=== PATIENT | female | born 1985 | race Caucasian/White ===

== ENCOUNTER → 2019-05-17 | Outpatient (REF) | payer OTHER | LOC: M SFHCLERA 19:29 | PROVIDERS: ATTEND Nurse Practitioner Family | DX: R53.81 Other malaise (principal) ==

== ENCOUNTER → 2020-05-08 | Outpatient (REF) | payer OTHER ==
[2020-05-08 10:11] LABS: HEMATOCRIT 35.6 % (36.0-47.0); MEAN CORPUSCULAR HEMOGLOBIN 30.8 pg (27.0-33.0); MEAN CORPUSCULAR HGB CONC 33.7 g/dl (32.0-36.5); MEAN CORPUSCULAR VOLUME 91.5 fl (80.0-96.0); PLATELET COUNT, AUTOMATED 283 10^3/uL (150-450); RED BLOOD COUNT 3.89 10^6/uL (4.00-5.40); WHITE BLOOD COUNT 8.2 10^3/uL (4.0-10.0)
[2020-05-08 12:11] LABS: CHLAMYDIA DNA AMPLIFICATION NEGATIVE (NEGATIVE); GC DNA AMPLIFICATION NEGATIVE (NEGATIVE)
[2020-05-08 12:35] LABS: HIV 1&2 SCREEN CENTAUR NEGATIVE (NEGATIVE)
== END ==
LOC: M PLALAB 08:44
PROVIDERS: ATTEND Advanced Practice Midwife
DX: O09.812 Supervision of pregnancy resulting from assisted reproductive technology, second trimester (principal); Z3A.00 Weeks of gestation of pregnancy not specified

== ENCOUNTER → 2020-05-08 | Outpatient (CLI) | payer OTHER | LOC: M PLALAB 08:45 | PROVIDERS: ATTEND Advanced Practice Midwife | DX: O09.812 Supervision of pregnancy resulting from assisted reproductive technology, second trimester (principal); Z3A.00 Weeks of gestation of pregnancy not specified ==

== ENCOUNTER → 2020-06-03 | Outpatient (CLI) | payer OTHER | LOC: M WHC 23:51 | PROVIDERS: ATTEND Obstetrics & Gynecology | DX: Z53.29 Procedure and treatment not carried out because of patient's decision for other reasons (principal); Z3A.19 19 weeks gestation of pregnancy ==

== ENCOUNTER → 2020-06-23 | Outpatient (CLI) | payer OTHER ==
--- NOTE | 2020-06-23 10:50 | REP ---
INDICATION: ANATOMY. COMPARISON: None. TECHNIQUE: Transabdominal obstetric sonography. FINDINGS: Scanning through the gravid uterus demonstrates a viable single intrauterine gestation in cephalic lie. motion is observed and heart rate is recorded at 152 beats per minute. A 2 anterior placenta is seen, grade 2, without evidence of placenta previa. Closed cervical length is measured at 3.6 cm transabdominally. No extrauterine abnormality is observed. Amniotic fluid is subjectively 6. No anomaly is seen. The following anatomic structures are identified and felt to be sonographically unremarkable: cranium, choroid plexus, cavum, cerebellum and posterior fossa, face and profile, lungs, four-chamber heart with left and right ventricular outflow tract views, diaphragm, left-sided stomach, abdominal wall cord insertion, three-vessel umbilical cord, kidneys and bladder, spine, and upper and lower extremities. Biometry chart: BPD 5.6 cm, 23 weeks 0 days Head circumference 21.4 cm, 23 weeks 3 days Abdominal circumference 18.6 cm, 23 weeks 3 days Femur length 3.9 cm, 22 weeks 3 days Humeral length 3.7 cm, 22 weeks 6 days HC AC ratio normal 1.15 Cephalic index normal 00.72 Estimated weight 553 g, 1 lb 3 oz, 42nd percentile for 23 weeks 0 days IMPRESSION: Viable single intrauterine gestation at 23 weeks 0 days by today's composite sonographic criteria. PARKER by today's sonography October 20, 2020.. No complication identified. Mild anterior myometrial thick wall thinning is seen at the scar. <Electronically signed by Anderson Vogt > 06/23/20 [id number]
== END ==
LOC: M WHC 07:47
PROVIDERS: ATTEND Obstetrics & Gynecology
DX: Z3A.19 19 weeks gestation of pregnancy (principal)

== ENCOUNTER → 2020-07-11 | Outpatient (REF) | payer OTHER | LOC: M PLALAB 07:49 | PROVIDERS: ATTEND Obstetrics & Gynecology | DX: Z3A.24 24 weeks gestation of pregnancy (principal); Z36.89 Encounter for other specified antenatal screening ==

== ENCOUNTER → 2020-07-28 | Outpatient (REF) | payer OTHER ==
[2020-07-28 13:42] LABS: HEMATOCRIT 33.9 % (36.0-47.0); HEMOGLOBIN 11.1 g/dl (12.0-15.5); MEAN CORPUSCULAR HEMOGLOBIN 30.1 pg (27.0-33.0); MEAN CORPUSCULAR HGB CONC 32.7 g/dl (32.0-36.5); MEAN CORPUSCULAR VOLUME 91.9 fl (80.0-96.0); PLATELET COUNT, AUTOMATED 317 10^3/uL (150-450); RED BLOOD COUNT 3.69 10^6/uL (4.00-5.40); WHITE BLOOD COUNT 9.9 10^3/uL (4.0-10.0)
== END ==
LOC: M PLALAB 09:16
PROVIDERS: ATTEND Obstetrics & Gynecology
DX: Z36.89 Encounter for other specified antenatal screening (principal); Z3A.24 24 weeks gestation of pregnancy

== ENCOUNTER → 2020-08-11 | Outpatient (CLI) | payer OTHER | LOC: M WHC 07:59 | PROVIDERS: ATTEND Obstetrics & Gynecology | DX: Z3A.29 29 weeks gestation of pregnancy (principal); Z53.9 Procedure and treatment not carried out, unspecified reason ==

== ENCOUNTER → 2020-08-25 | Outpatient (CLI) | payer OTHER ==
--- NOTE | 2020-08-25 15:59 | REP ---
INDICATION: F/U ANATOMY COMPARISON: 08/11/2020 TECHNIQUE: Transabdominal obstetrical ultrasound with color Doppler evaluation. FINDINGS: Examination demonstrates a single live intrauterine in breech presentation. motion is identified by technologist. Placenta is noted anterior and grade 2 without evidence for placenta previa or abruption. Amniotic fluid volume is normal. Cervix measures 5.1 cm in length and appears closed. Gestational age by LMP 32 weeks 0 days with PARKER 10/20/2020. Gestational age by current measurements 32 weeks 1 day with PARKER 10/19/2020. FHR equals 146 beats per minute. BPD: 8.0 cm at 32 weeks 2 days HC: 31.0 cm at 34 weeks 5 days AC: 28.6 cm at 32 weeks 4 days FL: 5.9 cm at 30 weeks 4 days HL: 5.3 cm at 30 weeks 5 days HC/AC: 1.09 Estimated weight 1920 grams (44thpercentile). MYNOR: 16.8 cm (8.6-24.2) Umbilical artery SD ratio: 2.16 (1.84-3.87). IMPRESSION: Single live advanced gestation in breech presentation demonstrating appropriate interval growth. <Electronically signed by [place] > 08/25/20 [id number]
== END ==
LOC: M WHC 14:18
PROVIDERS: ATTEND Obstetrics & Gynecology
DX: Z36.2 Encounter for other antenatal screening follow-up (principal); Z3A.32 32 weeks gestation of pregnancy; O32.1XX0 Maternal care for breech presentation, not applicable or unspecified

== ENCOUNTER 2020-08-30 10:37 | Outpatient (CLI) | payer OTHER ==
[~2020-08-30] VITALS: Ht 170.2 cm; Wt 85.2 kg
[2020-08-30 10:49] VITALS: BP 104/63
--- NOTE | 2020-08-30 12:05 | IPNPDOC ---
Obstetrical Progress Note Date of Service August 30, 2020 Subjective 35-year-old G6, P3 023 at 31+6 weeks gestation. Presents with concerns of decreased movement. She denies vaginal bleeding, loss of fluid or uterine contractions. course: 1. IVF 2. 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 Ext: no c/c/e EFM: Cat I/reactive, normal baseline, mod jami, no decels [place]: no ctx pattern detected US,[place]: cephalic, MVP = 5.6cm A/P: 35yo at 31+6 weeks. Reassuring maternal and status. -Routine 3rd TM precautions reviewed -Follow up in office as scheduled. DO BARB Muro JONATHAN R. DO August 30, 2020 12:05
[2020-08-30] MEDS ORDERED: PRENTAB9 PO (12:09)
[2020-08-30] MEDS ORDERED: GAS-62.5 PO (12:09)
[2020-08-30] MEDS ORDERED: TUMS500C PO (12:09)
== END 2020-08-30 12:00 | disposition home or self-care (01) ==
LOC: M LDO 10:37
PROVIDERS: ATTEND Obstetrics & Gynecology
DX: O36.8130 Decreased fetal movements, third trimester, not applicable or unspecified (principal); Z3A.31 31 weeks gestation of pregnancy; O34.211 Maternal care for low transverse scar from previous cesarean delivery; O09.813 Supervision of pregnancy resulting from assisted reproductive technology, third trimester; Z88.8 Allergy status to other drugs, medicaments and biological substances
CPT/HCPCS: 59025; 76815; G0378; G0463

== ENCOUNTER → 2020-09-25 | Outpatient (REF) | payer OTHER ==
[~2020-09-25] MED LIST: GAS-62.5 PO; PRENTAB9 PO; TUMS500C PO
== END ==
LOC: M SFHCWAGY 16:50
PROVIDERS: ATTEND Advanced Practice Midwife
DX: O34.211 Maternal care for low transverse scar from previous cesarean delivery (principal)

== ENCOUNTER → 2020-10-15 | Outpatient (CLI) | payer OTHER ==
[~2020-10-15] MED LIST changes: +ACET325C5 PO; +IBUP80TA PO; +OXYC1TAB23 PO
== END ==
LOC: M LABSMTC 09:37
PROVIDERS: ATTEND Anesthesiology
DX: Z01.812 Encounter for preprocedural laboratory examination (principal)
CPT/HCPCS: G0463; U0003

== ENCOUNTER 2020-10-20 05:15 | Inpatient (IN) | payer OTHER ==
[~2020-10-20] VITALS: Ht 170.2 cm; Wt 84.8 kg
[2020-10-20] VITALS (9 sets, daily range): BP systolic 90–136; BP diastolic 51–80
[~2020-10-20 05:15] MED LIST changes: -ACET325C5 PO; -IBUP80TA PO; -OXYC1TAB23 PO
[2020-10-20] MEDS ORDERED: ACET325C5 PO (05:46)
[2020-10-20] MEDS ORDERED: BICITRA 30ML SOLN UDC PO ONE ×2 (06:00→07:10)
[2020-10-20 06:21] LABS: HEMATOCRIT 32.6 % (36.0-47.0); HEMOGLOBIN 10.4 g/dl (12.0-15.5); MEAN CORPUSCULAR HEMOGLOBIN 26.4 pg (27.0-33.0); MEAN CORPUSCULAR HGB CONC 31.9 g/dl (32.0-36.5); MEAN CORPUSCULAR VOLUME 82.7 fl (80.0-96.0); PLATELET COUNT, AUTOMATED 292 10^3/uL (150-450); RED BLOOD COUNT 3.94 10^6/uL (4.00-5.40); WHITE BLOOD COUNT 8.2 10^3/uL (4.0-10.0)
[2020-10-20] MEDS ORDERED: LACTATED RINGER'S 1000 ML IV STA (07:08)
[2020-10-20] MEDS ORDERED: ceFAZolin SOD 2 GM in IV 1 EA IV ONE (07:10)
[2020-10-20] MEDS ORDERED: LR 1,000 ML IV SCH ×2 (07:10→09:00)
[2020-10-20] MEDS ORDERED: CLINDAMYCIN 900 MG in IV 1 EA IV ONE (07:15)
[2020-10-20] MEDS ORDERED: OXYTOCIN 30 UNITS IN 0.9% NaCl 500ML IV BAG (J2590) As Ordered ONE ×2 (07:43→09:27)
[2020-10-20] MEDS ORDERED: MORPHINE PRES-FREE INJ 10 MG/10 ML VIAL (J2274) As Ordered ONE (07:43)
[2020-10-20] MEDS ORDERED: dexameTHASONE 4 MG/ML 1ML VIAL (J1100 PER 1MG) As Ordered ONE (07:43)
[2020-10-20] MEDS ORDERED: KETOROLAC 60MG 2ML VIAL As Ordered ONE (07:43)
[2020-10-20] MEDS ORDERED: ONDANSETRON 4MG/2ML VIAL As Ordered ONE (07:43)
[2020-10-20] MEDS ORDERED: NALBUPHINE HCL 10 MG/ML AMP (J2300) IV PRN ×2 (07:58→09:00)
[2020-10-20] MEDS ORDERED: METOCLOPRAMIDE INJ 10MG/2ML VIAL (J2765 PER 1) IV PRN (07:58)
[2020-10-20] MEDS ORDERED: NALOXONE INJ 0.4MG/1ML VIAL (J2310 PER 1MG) IV PRN ×2 (07:58)
[2020-10-20] MEDS ORDERED: diphenhydrAMINE 50MG/ML VIAL (J1200) IV PRN ×2 (07:58→11:10)
[2020-10-20] MEDS ORDERED: ONDANSETRON 4MG/2ML VIAL IV PRN ×3 (07:58→09:10)
[2020-10-20] MEDS ORDERED: GENTAMICIN 120 MG in D5W 50 ML IV ONE (08:00)
[2020-10-20] MEDS ORDERED: PHENYLephrine 500MCG 5ML (100MCG/ML) SYRINGE As Ordered ONE ×2 (08:08→08:35)
[2020-10-20] MEDS ORDERED: METOCLOPRAMIDE INJ 10MG/2ML VIAL (J2765 PER 1) As Ordered ONE (08:20)
--- NOTE | 2020-10-20 08:57 | ROOPDOC ---
[facility] Report Of Operation Report of Operation DATE OF PROCEDURE: 10/20/20 Report of operation Preoperative diagnosis: 39 weeks, prior section x 3 Postoperative diagnosis: same Procedure: Repeat low transverse section. Surgeon: Charisse Escobedo M.D. Asst.: Cinthya Faye CNM EBL: 500 ml. Urine output: 100 mL's. Findings: 8 lbs. 11 oz. male infant, 's 8 and 9 g normal uterus, ovaries. Fallopian tubes with evidence of prior surgery. Operative summary: Patient was taken to the operating room where spinal anesthesia was induced. She was prepped and draped sterile fashion in the supine position. A Fontanez catheter was placed. A Pfannenstiel skin incision was made with scalpel. Fascia was incised and extended bilaterally. The peritoneal cavity was entered. A Mobius retractor was placed. A bladder flap was created. A curv ilinear incision was made in lower uterine segment until Clear fluid was noted. The incision was extended manually. The was delivered from the vertex position without difficulty. Cord was doubly clamped and cut. The infant was handed to awaiting nurses. The placenta was expressed. Uterus was closed with O- Vicryl in a running locked fashion. A second imbricating layer of Vicryl was placed. Peritoneum was closed with 2-0 Vicryl a running fashion. Fascia was closed with 0 Vicryl in running fashion. Skin was closed 4-0 Monocryl subcuticular sutures. Sponge, instrument and needle counts were correct. Cinthya Faye CNM, assisted with all aspects of the procedure. She helped close each layer of the incision and deliver the fetus. . CHARISSE ESCOBEDO MD Oct 20, 2020 08:57
[2020-10-20] MEDS: PRENATAL VITAMINS CHEWABLE TABLET PO SCH (09:00)
[2020-10-20] MEDS ORDERED: fentaNYL 100 MCG/2 ML INJECTION (J3010) IV PRN (09:00)
[2020-10-20] MEDS ORDERED: PERCOCET 5MG/325MG TAB PO PRN ×2 (09:10)
[2020-10-20] MEDS ORDERED: MEASLES,MUMPS,RUBELLA VACCINE INJ (MMR-II) (90707) SC SCH (09:10)
[2020-10-20] MEDS ORDERED: OXYTOCIN DRIP 30 UNITS in IV 1 EA IV SCH (09:10)
[2020-10-20] MEDS ORDERED: RHOGAM 300 MCG (1500 IU) INJ (J2790) IM SCH (09:10)
[2020-10-20] MEDS ORDERED: DOCUSATE SODIUM 100MG CAPSULE PO PRN (09:10)
[2020-10-20] MEDS: LR 1,000 ML IV SCH ×2 (10:02→18:13)
[2020-10-20] MEDS: KETOROLAC 30 MG/ML 1ML VIAL IV SCH ×2 (14:53→21:13)
[2020-10-20] MEDS ORDERED: SLF 3 ML SYR IV PRN (18:35)
[2020-10-20] MEDS: SLF 3 ML SYR IV SCH (21:13)
[2020-10-21] MEDS: LR 1,000 ML IV SCH (01:10)
[2020-10-21 02:00] VITALS: BP 92/60
[2020-10-21] MEDS: KETOROLAC 30 MG/ML 1ML VIAL IV SCH (02:30)
[2020-10-21 05:50] VITALS: BP 108/59
[2020-10-21] MEDS: SLF 3 ML SYR IV SCH ×2 (06:04→13:45)
[2020-10-21] MEDS: SIMETHICONE 80MG CHEW TAB PO PRN ×2 (07:42→14:01)
[2020-10-21] MEDS: PRENATAL VITAMINS CHEWABLE TABLET PO SCH (07:43)
[2020-10-21 08:57] LABS: HEMATOCRIT 27.2 % (36.0-47.0); HEMOGLOBIN 8.7 g/dl (12.0-15.5); MEAN CORPUSCULAR HEMOGLOBIN 26.8 pg (27.0-33.0); MEAN CORPUSCULAR VOLUME 83.7 fl (80.0-96.0); PLATELET COUNT, AUTOMATED 255 10^3/uL (150-450); RED BLOOD COUNT 3.25 10^6/uL (4.00-5.40); WHITE BLOOD COUNT 9.3 10^3/uL (4.0-10.0)
[2020-10-21 10:04] VITALS: BP 103/65
[2020-10-21] MEDS ORDERED: IBUPROFEN 800 MG TAB PO SCH (11:00)
[2020-10-21 14:03] VITALS: BP 128/72
[2020-10-21] MEDS ORDERED: IBUP80TA PO (15:40)
[2020-10-21] MEDS ORDERED: OXYC1TAB23 PO (15:40)
--- NOTE | 2020-10-21 15:55 | DS.PDOC ---
Discharge Summary General Date of Admission Oct 20, 2020 at 05:15 Date of Discharge October 21, 2020 Discharge Summary PROCEDURES PERFORMED DURING STAY: . ADMITTING DIAGNOSES: 1. 39 1/7 weeks, prior x 3. DISCHARGE DIAGNOSES: 1. delivered. COMPLICATIONS/CHIEF COMPLAINT: Previous Section. HISTORY OF PRESENT ILLNESS: 35 yo female at 39 1/7 weeks gestation presents for a repeat section. She has had 3 prior sections. No complications during . HOSPITAL COURSE: 35 yo female at 39 1/7 weeks gestation presents for a repeat section. She has had 3 prior sections. No complications during . On October 20, 2020 she underwent a repeat low transverse section for an 8# 11 oz infant, scores 8,9. Her post-operative course was unremarkable. She had adequate return of bladder and bowel function. The baby developed respiratory difficulty on post op day#1 and required intubation. The baby was transferred to [facility] for [facility] care. The patient was discharged in order to be with the baby. DISCHARGE MEDICATIONS: Please see below. ALLERGIES: Please see below. PHYSICAL EXAMINATION ON DISCHARGE: VITAL SIGNS: Please see below. GENERAL: NAD HEENT: NCAT CARDIOVASCULAR EXAMINATION: RRR RESPIRATORY EXAMINATION: CTA ABDOMINAL EXAMINATION: NT, dressing I EXTREMITIES: NT LABORATORY DATA: Please see below. PROGNOSIS: good ACTIVITY: As tolerated. DIET: reg DISCHARGE PLAN: home DISCHARGE INSTRUCTIONS: 1. instructions reviewed 2. pain meds sent 3. f-u 2 weeks DISCHARGE CONDITION: Stable. TIME SPENT ON DISCHARGE: 5 minutes. Vital Signs/I&Os Vital Signs Date Time Temp Pulse Resp B/P (MAP) Pulse Ox O2 Delivery O2 Flow Rate FiO2 10/21/20 14:03 96.5 72 17 128/72 (90) 100 Room Air I&O- Last 24 Hours up to 6 AM 10/21/20 06:00 Intake Total 4588 ml Output Total 2255 ml Balance 2333 ml Laboratory Data Labs 24H Laboratory Tests 2 10/21/20 08:19: Nucleated Red Blood Cells % (auto) 0.0 CBC/BMP Laboratory Tests 10/21/20 08:19 Discharge Medications Scheduled Ibuprofen (Ibuprofen) 800 Mg Tablet, 800 MG PO Q8H No.137/Iron/Folic Acd ( Vitamin Tablet) 1 Each Tablet, 1 TAB PO DAILY, (Reported) Simethicone (Gas-X) 62.5 Mg Strip, 62.5 MG PO PRN, (Reported) Scheduled PRN Oxycodone HCl/Acetaminophen (Oxycodone-Acetaminophen 5-325) 1 Each Tablet, 1 TAB PO TIDP PRN for pain Allergies Coded Allergies: Penicillins (Verified Allergy, Severe, ANAPHYLAXIS, 10/07/20) CHARISSE ESCOBEDO MD Oct 21, 2020 15:55
== END 2020-10-21 16:00 | disposition home or self-care (01) | DRG 773 ==
LOC: M LDI 05:15 → M OBS 10:30
PROVIDERS: ADMIT Specialist; ATTEND Specialist
PROC: 10D00Z1 Extraction of Products of Conception, Low, Open Approach (ICD-10-PCS; principal; 2020-10-20 07:30)
DX: O34.211 Maternal care for low transverse scar from previous cesarean delivery (principal); Z37.0 Single live birth; Z3A.39 39 weeks gestation of pregnancy; Z88.0 Allergy status to penicillin